=== PATIENT | female | born 1995 | race Hispanic/Latino ===

== ENCOUNTER 2022-06-13 15:18 | Emergency (ER) | payer SELFPAY ==
[2022-06-13] MEDS ORDERED: ONDANSETRON 4 MG/2 ML INJ IV PRN (15:36)
[2022-06-13] MEDS ORDERED: NALOXONE 0.4 MG/1 ML INJ IV PRN (15:36)
--- NOTE | 2022-06-13 15:42 | Emergency Department Report ---
ED General Adult HPI - General Chief complaint: Overdose Stated complaint: OVERDOSE Time Seen by Provider: 06/13/22 15:36 Source: patient, EMS (Verbal report received from emergency medical services. EMS documentation not available at time of chart dictation ), RN notes reviewed Mode of arrival: Stretcher Limitations: No Limitations - History of Present Illness Initial comments: The patient was evaluated in the emergency department for symptoms described in the history of present illness. He/she was evaluated in the context of the global COVID-19 pandemic, which necessitated consideration that the patient might be at risk for infection with the virus that causes COVID-19. Institutional protocols and algorithms that pertain to the evaluation of patients at risk for COVID-19 are in a state of rapid change based on information released by regulatory bodies including the CDC and federal and state organizations. These policies and algorithms were followed during the patient's care in the emergency department. Please note that these policies, procedures and recommendations changed on a rapid basis. During the history and physical examination, I am chaperoned by nurse Yessenia Kain The patient is a 26-year-old female. She states that she is not . She is currently on maintenance methadone, 10 mg daily, which she gets from a local [employer] location. She has a history of IV drug abuse, heroin. She is brought to the hospital by emergency medical services. As per verbal report from EMS, the patient consumed a 40 mg tablet of Xanax, which she purchased off the street, about an hour and a half ago. She became unresponsive, and had trouble breathing, and a male lens grinder and polisher with the patient, called 911. EMS gave the patient Narcan in the field. The patient reports that she is not homicidal or suicidal. The patient denies physical pain. The patient reports that she is back to her baseline. She denies physical pain. She does report that she is originally from [facility]. She is a current and intermittent IV heroin user. She is not currently interested in detox. She denies cutaneous symptoms at this time -: Sudden Severity scale (0 -10): 0 Consistency: now resolved Improves with: medication Worsens with: none Associated Symptoms: denies other symptoms - Related Data Previous Rx's Medication Instructions Recorded Last Taken Type Naloxone HCl [Narcan Nasal [place]] 4 mg NS PRN PRN #1 spray 06/13/22 Unknown Rx Ondansetron [Zofran Odt] 4 mg PO Q8HR PRN #20 tab.rapdis 06/13/22 Unknown Rx cloNIDine [Catapres] 0.1 mg PO BID PRN #20 tablet 06/13/22 Unknown Rx Allergies Allergy/AdvReac Type Severity Reaction Status Date / Time No Known Allergies Allergy Verified 06/13/22 15:23 ED Review of Systems ROS: Stated complaint: OVERDOSE Other details as noted in HPI Comment: All other systems reviewed and negative ED Past Medical Hx - Past Medical History Previous Medical History?: No - Medications Home Medications: Home Medications Medication Instructions Recorded Confirmed Last Taken Type Naloxone HCl [Narcan Nasal [place]] 4 mg NS PRN PRN #1 spray 06/13/22 Unknown Rx Ondansetron [Zofran Odt] 4 mg PO Q8HR PRN #20 tab.rapdis 06/13/22 Unknown Rx cloNIDine [Catapres] 0.1 mg PO BID PRN #20 tablet 06/13/22 Unknown Rx ED Physical Exam - General Limitations: No Limitations General appearance: alert, in no apparent distress - Head Head exam: Present: atraumatic, normocephalic - Eye Eye exam: Present: normal appearance, EOMI. Absent: nystagmus - ENT ENT exam: Present: normal exam, normal orophraynx, mucous membranes moist, normal external ear exam - Neck Neck exam: Present: normal inspection, full ROM. Absent: tenderness, meningismus - Respiratory Respiratory exam: Present: normal lung sounds bilaterally. Absent: respiratory distress, wheezes, rales, rhonchi, stridor, decreased breath sounds - Cardiovascular Cardiovascular Exam: Present: regular rate, normal rhythm, normal heart sounds. Absent: bradycardia, tachycardia, irregular rhythm, systolic murmur, diastolic murmur, rubs, gallop - GI/Abdominal GI/Abdominal exam: Present: soft. Absent: distended, tenderness, guarding, rebound, rigid, pulsatile mass - Extremities Exam Extremities exam: Present: normal inspection, full ROM, normal capillary refill, other (2+ pulses noted in the bilateral upper and lower extremities. There is no palpable cord. negative Homans sign. Muscular compartments are soft. The pelvis is stable.). Absent: pedal edema, calf tenderness - Back Exam Back exam: Present: normal inspection, full ROM. Absent: tenderness, CVA t enderness (R), CVA tenderness (L), paraspinal tenderness, vertebral tenderness - Neurological Exam Neurological exam: Present: alert, oriented X3, normal gait, other (No facial droop. Tongue midline. Extraocular movements intact bilaterally. Facial sensation intact to light touch in V1, V2, V3 distribution bilaterally. 5 and a 5 strength in 4 extremities. Sensation intact to light touch in 4 extremities.). Absent: motor sensory deficit - Psychiatric Psychiatric exam: Present: normal affect, normal mood - Skin Skin exam: Present: warm, dry, intact, normal color. Absent: rash ED Course Vital Signs 06/13/22 06/13/22 06/13/22 15:21 15:36 15:46 Temperature Pulse Rate 100 H 85 Respiratory 14 10 L Rate Blood Pressure 123/71 Blood Pressure 123/76 [Left] O2 Sat by Pulse 100 98 99 Oximetry O2 Sat by Pulse Oximetry [ Digit-Finger] 06/13/22 06/13/22 06/13/22 16:00 16:16 16:29 Temperature 98.0 F Pulse Rate 97 H 82 Respiratory 15 13 Rate Blood Pressure 123/71 123/71 Blood Pressure [Left] O2 Sat by Pulse 98 96 Oximetry O2 Sat by Pulse Oximetry [ Digit-Finger] 06/13/22 06/13/22 06/13/22 16:30 16:46 17:00 Temperature Pulse Rate 77 82 86 Respiratory 12 13 12 Rate Blood Pressure 123/71 123/71 123/71 Blood Pressure [Left] O2 Sat by Pulse 95 95 96 Oximetry O2 Sat by Pulse Oximetry [ Digit-Finger] 06/13/22 06/13/22 06/13/22 17:16 17:30 17:46 Temperature Pulse Rate 94 H 93 H 86 Respiratory 14 14 12 Rate Blood Pressure 123/71 123/71 123/71 Blood Pressure [Left] O2 Sat by Pulse 96 96 97 Oximetry O2 Sat by Pulse Oximetry [ Digit-Finger] 06/13/22 06/13/22 17:50 18:00 Temperature Pulse Rate 82 Respiratory 13 Rate Blood Pressure 123/71 Blood Pressure [Left] O2 Sat by Pulse 96 Oximetry O2 Sat by Pulse 100 Oximetry [ Digit-Finger] - Reevaluation(s) Reevaluation #1: 06/13/22 15:57 Differential diagnosis, including but not limited to: Opioid overdose, polysubstance abuse, methadone maintenance therapy Assessment and plan: 26-year-old female, status post overdose with street drugs, reversed with Narcan by EMS. She is clinically sober at this time, with a GCS of 15, patient is clinically sober at this time. The cervical spine is cleared through nexus and zimbabwean c spine rule She is awake, alert, oriented, and does not meet criteria for 1013 hold or involuntary confinement. She is not interested in pursuing detox at this time. We have recommended observation in the department, with acquisition of appropriate laboratory studies and EKG monitoring. Patient is agreeable to this plan of care. 06/13/22 16:00 06/13/22 17:49 Patient resting comfortably in stretcher and in no acute distress. She is breathing spontaneously 06/13/22 19:27 The patient is observed and reassessed multiple times while here in the emergenc y room. She has not desaturated. She maintains her airway. She ate without difficulty. She has been observed for greater than 4 hours. She is endorsing readiness for discharge. Laboratory studies are nonactionable. EKG is unremarkable. Return precautions are reviewed. All questions answered. - Pulse Oximetry Interpretation Digit-Finger Initial Pulse Oximetry Readin O2 Sat by Pulse Oximetry: 100 Actions Taken: none ED Medical Decision Making - Lab Data Result diagrams: 06/13/22 Unknown Vital Signs 06/13/22 15:21 Pulse Rate 100 H Respiratory 14 Rate Blood Pressure 123/76 [Left] O2 Sat by Pulse 100 Oximetry Lab Results 06/13/22 06/13/22 06/13/22 Range/Units Unknown Unknown Unknown Sodium 138 (137-145) mmol/L Potassium 3.5 L (3.6-5.0) mmol/L Chloride 102.1 (98-107) mmol/L Carbon Dioxide 27 (22-30) mmol/L Anion Gap 12 mmol/L BUN 10 (7-17) mg/dL Creatinine 0.6 (0.6-1.2) mg/dL Estimated GFR > 60 ml/min BUN/Creatinine Ratio 17 % Glucose 94 (65-100) mg/dL Calcium 9.4 (8.4-10.2) mg/dL Total Bilirubin < 0.20 (0.1-1.2) mg/dL AST 12 (5-40) units/L ALT 11 (7-56) units/L Alkaline Phosphatase 91 (35-129) units/L Total Protein 7.0 (6.3-8.2) g/dL Albumin 4.4 (3.9-5) g/dL Albumin/Globulin Ratio 1.7 % HCG, Quant < 2 (0-4) mIU/mL Salicylates < 0.3 L (2.8-20.0) mg/dL Acetaminophen (10.0-30.0) ug/mL 06/13/22 Range/Units Unknown Sodium (137-145) mmol/L Potassium (3.6-5.0) mmol/L Chloride (98-107) mmol/L Carbon Dioxide (22-30) mmol/L Anion Gap mmol/L BUN (7-17) mg/dL Creatinine (0.6-1.2) mg/dL Estimated GFR ml/min BUN/Creatinine Ratio % Glucose (65-100) mg/dL Calcium (8.4-10.2) mg/dL Total Bilirubin (0.1-1.2) mg/dL AST (5-40) units/L ALT (7-56) units/L Alkaline Phosphatase (35-129) units/L Total Protein (6.3-8.2) g/dL Albumin (3.9-5) g/dL Albumin/Globulin Ratio % HCG, Quant (0-4) mIU/mL Salicylates (2.8-20.0) mg/dL Acetaminophen 5.0 L (10.0-30.0) ug/mL Vital Signs 06/13/22 06/13/22 06/13/22 15:21 15:36 15:46 Temperature Pulse Rate 100 H 85 Respiratory 14 10 L Rate Blood Pressure 123/71 Blood Pressure 123/76 [Left] O2 Sat by Pulse 100 98 99 Oximetry O2 Sat by Pulse Oximetry [ Digit-Finger] 06/13/22 06/13/22 06/13/22 16:00 16:04 16:16 Temperature Pulse Rate 97 H 82 Respiratory 15 13 Rate Blood Pressure 123/71 123/71 Blood Pressure [Left] O2 Sat by Pulse 98 96 Oximetry O2 Sat by Pulse 100 Oximetry [ Digit-Finger] 06/13/22 16:29 Temperature 98.0 F Pulse Rate Respiratory Rate Blood Pressure Blood Pressure [Left] O2 Sat by Pulse Oximetry O2 Sat by Pulse Oximetry [ Digit-Finger] - EKG Data -: EKG Interpreted by Pa EKG shows normal: sinus rhythm Rate: normal - EKG Data When compared to previous EKG there are: previous EKG unavailable 06/13/22 15:56 The EKG is interpreted at 15: 45 Sinus rhythm, 85 bpm. Normal axis, normal intervals, normal P wave axis. Unremarkable EKG. No STEMI. There is no prior for comparison. Critical care attestation.: If time is entered above; I have spent that time in minutes in the direct care of this critically ill patient, excluding procedure time. ED Disposition Clinical Impression: Opioid abuse, Benzodiazepine abuse, Methadone maintenance therapy patient Disposition: HOME / SELF CARE / HOMELESS Is pt being admited?: No Does the pt Need Aspirin: No Condition: Good Additional Instructions: Recommend that patient always use clean and previously unused needles, if injecting IV drugs. Recommend that patient not use heroin, Xanax, or street drugs. Recommend that patient avoid consumption of alcohol, tobacco and smoke products. Recreational drug use may cause respiratory depression, , paralysis, disability, and loss of quality of life. May take the clonidine as needed for symptoms of opioid withdrawal. May take the Zofran as needed for nausea and vomiting. May take [id number] loperamide as needed for diarrhea associated with opioid withdrawal. Take the Narcan as needed for opioid overdose. Please follow-up with your outpatient primary care doctor or extracorporeal circulation specialist within the next week. Do not drive or operate motor vehicles for the next 6 months, or until cleared to do so by your outpatient primary care physician. Please follow-up with an outpatient mental health specialist within the next week. Avoid consumption of alcohol, tobacco, smoke products and recreational drugs. Please return to the emergency room right away with new pain, worsened pain, migration of pain, projectile vomiting, change in mental status, confusion, inability tolerate liquid feeds, new, worsened or different symptoms not present on the initial emergency room evaluation Please return to the emergency room right away with new pain, worsened pain, migration of pain, projectile vomiting, change in mental status, confusion, inability tolerate liquid feeds, new, worsened or different symptoms not present on the initial emergency room evaluation professional and Agency Contacts To help [facility] (22/05) [place] Crisis Line: Suicide Prevention Line: Crisis Text Line: Text ``START to 867760 Emergency: 911 Outpatient COMMUNITY Behavioral Health Resources: [place]: [facility] [address], [place] [address] [place]: [facility] [address] [place] [address] Monday thru Monday - 8am - 5pm Call to schedule an assessment for mental health and substance abuse programs [place]: [facility] Address: [address] [place], [place] Monday thru Monday- 7am-2pm [facility] Address: [address] [place] [address] Monday thru Monday: 8:30AM-5PM Prescriptions: cloNIDine [Catapres] 0.1 mg PO BID PRN #20 tablet PRN Reason: Vomiting Naloxone HCl [Narcan Nasal [place]] 4 mg NS PRN PRN #1 spray PRN Reason: Opioid Reversal Ondansetron [Zofran Odt] 4 mg PO Q8HR PRN #20 tab.rapdis PRN Reason: Nausea Referrals: [facility] [Outside] - 3-5 Days [facility] [Outside] - 3-5 Days [facility] [Provider Group] - 3-5 Days
[2022-06-13 16:04] VITALS: BP 123/71
[2022-06-13 16:43] LABS: Alanine Aminotransferase 11 units/L (7-56); Albumin 4.4 g/dL (3.9-5); Blood Urea Nitrogen 10 mg/dL (7-17); Calcium 9.4 mg/dL (8.4-10.2); Hemolysis Index 4
[2022-06-13 16:57] LABS: BUN/Creatinine Ratio 17
--- NOTE | 2022-06-14 10:34 | Electrocardiograph Report ---
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
== END 2022-06-13 20:33 | disposition home or self-care (01) ==
LOC: ED 15:18
DX: F11.20 Opioid dependence, uncomplicated (principal); F13.10 Sedative, hypnotic or anxiolytic abuse, uncomplicated; Z79.899 Other long term (current) drug therapy
CPT/HCPCS: 36415; 80053; 80320; 84702; 93005; 99283; G0480